=== PATIENT | female | born 1960 | race American Indian/Alaskan Native ===

== ENCOUNTER 2016-12-09 19:07 | Emergency (ER) | payer OTHER, MEDICAID ==
[2016-12-09 19:31] VITALS: BP 123/78
--- NOTE | 2016-12-09 19:57 | EDM.PDOC ---
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 Allergies/ADRs: Allergies clindamycin Allergy (Verified 12/09/16 19:31) Rash cyclobenzaprine HCl [From Flexeril] Allergy (Verified 12/09/16 19:31) Rash Penicillins Allergy (Verified 12/09/16 19:31) Swelling Home Medications: Ambulatory Orders LORazepam [LORazepam] 0.5 mg PO DAILY 12/09/16 [Confirmed 12/09/16] traMADol HCl [Tramadol HCl] 50 mg PO TID 12/09/16 [Confirmed 12/09/16] Past Medical History HEENT History: Reports: Hard of hearing, Impaired vision, Other (see below) Other HEENT History: deaf right ear, DOES NOT WEAR CORRECTIVE LENSES, DOES NEED THEM Cardiovascular History: Reports: Hypertension Other Cardiovascular History: DENIES HTN Respiratory History: Reports: None Gastrointestinal History: Reports: GERD, Helicobacter pylori, Other (see below) Other Gastrointestinal History: ABDOMINAL PAIN PERSISTENT Genitourinary History: Reports: None 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: , 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 (see below) Other OB/BYN History: uterine cancer 1994 Musculoskeletal History: Reports: Arthritis, Back pain, chronic, Osteoarthritis Other Musculoskeletal History: arthritis low back and right knee; RIGHT HAND CARPAL TUNNEL Neurological History: Reports: None Psychiatric History: Reports: None Endocrine/Metabolic History: Reports: None Hematologic History: Reports: None Immunologic History: Reports: None Oncologic (Cancer) History: Reports: Uterine Dermatologic History: Reports: None - Infectious Disease History Infectious Disease History: Reports: Chicken pox, Helicobacter pylori - Past Surgical History Head Surgeries/Procedures: Reports: None HEENT Surgical History: Reports: Tonsillectomy, Other (see below) Other HEENT Surgeries/Procedures: right ear surgery Cardiovascular Surgical History: Reports: None Respiratory Surgical History: Reports: None GI Surgical History: Reports: Cholecystectomy, Colonoscopy, EGD, Other (see below) Other GI Surgeries/Procedures: CLOSED LIVER BIOPSY Female Surgical History: Reports: Hysterectomy Endocrine Surgical History: Reports: None Neurological Surgical History: Reports: None Musculoskeletal Surgical History: Reports: None Oncologic Surgical History: Reports: Other (see below) Other Oncologic Surgeries/Procedures: hysterectomy Dermatological Surgical History: Reports: None Social & Family History - Family History Family Medical History: Noncontributory - Tobacco Use Smoking Status *Q: Current Every Day Smoker Years of Tobacco use: 41 Packs/Tins Daily: 0.5 Used Tobacco, but Quit: No Second Hand Smoke Exposure: Yes - Alcohol Use Days Per Week of Alcohol Use: 0 - Recreational Drug Use Recreational Drug Use: No Drug Use in Last 12 Months: No Review of Systems - Review of Systems Review Of Systems: ROS reveals no pertinent complaints other than HPI. Trauma Exam - Physical Exam Exam: See Below Exam Limited By: No limitations General Appearance: Reports: alert, WD/WN, mild distress, other (CRYING) Head: Reports: atraumatic Ears: Reports: hearing grossly normal Throat/Mouth: Reports: Normal voice, No airway compromise Neck: Reports: non-tender, full range of motion Respiratory Exam: Reports: no respiratory distress Cardiovascular: Reports: regular rate, rhythm GI/Abdominal: Reports: soft, non tender Extremities: Reports: pain with movement, tenderness, other (left foot dorsal- lateral>, tender R/P, no D/D, NV wnl, gait limited to pain) Neurologic: Reports: no motor/sensory deficits, alert, normal mood/affect, oriented x 3 Skin: Reports: Normal color, Warm/dry Course - Vital Signs Last Recorded V/S: Last Vital Signs Temp 36.6 C 12/09/16 19:26 Pulse 72 12/09/16 19:26 Resp 14 12/09/16 19:26 BP 123/78 12/09/16 19:26 Pulse Ox 97 12/09/16 19:26 - Orders/Labs/Meds Meds: Medications Discontinued Medications Generic Name Dose Route Start Last Admin Trade Name Freq PRN Reason Stop Dose Admin Hydrocodone Bitart/Acetaminophen 1 tab 12/09/16 20:34 12/09/16 20:37 [place] 325-10 Mg PO 12/09/16 20:35 1 tab ONETIME ONE Administration - Re-Assessments/Exams Free Text/Narrative Re-Assessment/Exam: 12/09/16 20:39 negative x-ray discussed with Pt. Departure - Departure Time of Disposition: 20:39 Disposition: Home, Self-Care 01 Condition: good Clinical Impression: Sprain of foot, left Qualifiers: Encounter type: initial encounter Qualified Code(s): S93.602A - Unspecified sprain of left foot, initial encounter Instructions: Foot Sprain Forms: ED Department Discharge Additional Instructions: 1) elevate foot as much as possible next 48 hours 2) ice intermittently for swelling 3) follow up at clinic or recheck as needed rx given: vicodon 5/325mg bid prn x 6
[2016-12-09] MEDS ORDERED: Acetaminophen/HYDROcodone 325-10 MG Tab PO ONE (20:34)
== END 2016-12-09 20:45 | disposition home or self-care (01) ==
LOC: DL.ED 19:07
DX: S93.602A Unspecified sprain of left foot, initial encounter (principal); I10 Essential (primary) hypertension; K21.9 Gastro-esophageal reflux disease without esophagitis; M19.90 Unspecified osteoarthritis, unspecified site; F17.210 Nicotine dependence, cigarettes, uncomplicated; Z98.890 Other specified postprocedural states; Z90.49 Acquired absence of other specified parts of digestive tract; Z90.710 Acquired absence of both cervix and uterus; Z88.1 Allergy status to other antibiotic agents; Z88.0 Allergy status to penicillin; Z88.8 Allergy status to other drugs, medicaments and biological substances; W19.XXXA Unspecified fall, initial encounter
CPT/HCPCS: 73600; 73630; 99283; A9270

== ENCOUNTER 2020-06-06 17:45 | Emergency (ER) | payer MEDICAID, OTHER ==
[2020-06-06] MEDS ORDERED: Sodium Chloride 0.9% 10 ML Syringe FLUSH PRN (18:02)
[2020-06-06] MEDS ORDERED: Ondansetron 4 MG/2 ML SDV IVPUSH ONE (18:03)
--- NOTE | 2020-06-06 18:08 | EDM.PDOC ---
<JarrettCamelia Stephani - Last Filed: 06/06/20 18:52> ED HPI GENERAL MEDICAL PROBLEM - General Chief Complaint: Abdominal Pain Stated Complaint: FRONT LEFT SIDE OF STOMACH, PRESSURE Time Seen by Provider: 06/06/20 18:00 Source of Information: Reports: Patient History Limitations: Reports: No Limitations - History of Present Illness INITIAL COMMENTS - FREE TEXT/NARRATIVE: Patient is here today for left lower-mid abdominal pain. 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 It is a cramping pain that is intermittent. Worse with walking and movement, better with rest. She has not had this pain before. She had a normal bowel movement since this started without relief. No blood or mucous in the stool. She does have some n ausea. No vomiting. No urinary symptoms. Left Lower Abdomen Pain Score (Numeric/FACES): 7 - Related Data Allergies Allergy/AdvReac Type Severity Reaction Status Date / Time clindamycin Allergy Rash Verified 06/06/20 18:01 cyclobenzaprine HCl Allergy Rash Verified 06/06/20 18:01 [From Flexeril] Penicillins Allergy Swelling Verified 06/06/20 18:01 Home Meds: Home Meds . 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 Musculoskeletal History: Reports: Arthritis, Back Pain, Chronic, Osteoarthritis Other Musculoskeletal History: arthritis low back and right knee; RIGHT HAND CARPAL TUNNEL Neurological History: Reports: None Psychiatric History: Reports: None Endocrine/Metabolic History: Reports: None Hematologic History: Reports: None Immunologic History: Reports: None Oncologic (Cancer) History: Reports: Uterine Dermatologic History: Reports: None - Infectious Disease History Infectious Disease History: Reports: Chicken Pox, Helicobacter Pylori - Past Surgical History Head Surgeries/Procedures: Reports: None HEENT Surgical History: Reports: Tonsillectomy, Other (See Below) Cardiovascular Surgical History: Reports: None Respiratory Surgical History: Reports: None GI Surgical History: Reports: Cholecystectomy, Colonoscopy, EGD, Other (See Below) Female Surgical History: Reports: Hysterectomy Endocrine Surgical History: Reports: None Neurological Surgical History: Reports: None Oncologic Surgical History: Reports: Other (See Below) Dermatological Surgical History: Reports: None Social & Family History - Family History Family Medical History: Noncontributory - Caffeine Use Caffeine Use: Reports: Coffee, Soda ED ROS GENERAL - Review of Systems Review Of Systems: Comprehensive ROS is negative, except as noted in HPI. ED EXAM, GI/ABD - Physical Exam Exam: See Below Exam Limited By: No Limitations General Appearance: Alert, WD/WN, No Apparent Distress Throat/Mouth: Normal Voice, No Airway Compromise Respiratory/Chest: No Respiratory Distress, Lungs Clear, Normal Breath Sounds, No Accessory Muscle Use, Chest Non-Tender Cardiovascular: Normal Peripheral Pulses, Regular Rate, Rhythm, No Edema, No Murmur GI/Abdominal Exam: Soft, No Distention, Tender (left lower quadrant). No: Guarding, Rebound Back Exam: Normal Inspection, Full Range of Motion Extremities: Normal Inspection, Normal Range of Motion, Non-Tender Neurological: Alert, Oriented, Normal Cognition, Normal Gait Psychiatric: Normal Affect, Normal Mood Skin Exam: Warm, Dry, Intact, Normal Color, No Rash Lymphatic: No Adenopathy Course - Re-Assessments/Exams Free Text/Narrative Re-Assessment/Exam: Patient signed out to Dr. Peterson at 1900 shift change. 06/06/20 18:52 Departure - Departure Disposition: DC/Tfer to [facility] 02 Clinical Impression: Perforated diverticulum - Discharge Information Forms: Interfacility Transfer [facility] Sepsis Event Note (ED) - Evaluation Sepsis Screening Result: No Definite Risk <Yoan Peterson - Last Filed: 06/06/20 20:33> ED HPI GENERAL MEDICAL PROBLEM - History of Present Illness INITIAL COMMENTS - FREE TEXT/NARRATIVE: re-exam; s/p IV toradol = '0'. LLQ guarding without rebound. BS minimal. ED EXAM, GI/ABD - Physical Exam GI/Abdominal Exam: Other (re-exam; guarding without rebound) Course - Vital Signs Last Recorded V/S: Last Vital Signs Temp 36.7 C 06/06/20 18:54 Pulse 60 06/06/20 18:54 Resp 16 06/06/20 18:54 BP 108/75 06/06/20 18:54 Pulse Ox 96 06/06/20 18:54 - Orders/Labs/Meds Orders: Active Orders 24 hr Category Date Time Status Peripheral IV Care [RC] . DIRECTED Care 06/06/20 18:03 Active Abdomen 1V Flat [CR] Stat Exams 06/06/20 18:02 Taken Abdomen Pelvis wo Cont [CT] Urgent Exams 06/06/20 19:03 Taken Ciprofloxacin in D5W [Cipro in D5W 400 MG/200 ML] 400 Med 06/06/20 20:19 Active mg Premix Bag 1 bag IV ONETIME Sodium Chloride 0.9% [Saline Flush] Med 06/06/20 18:02 Active 10 ml FLUSH ASDIRECTED PRN metroNIDAZOLE/Normal Saline [Flagyl 500 MG in NS 100 ML Med 06/06/20 20:19 Active ] 500 mg Premix Bag 100 bag IV ONETIME Peripheral IV Insertion Adult [OM.PC] Stat Oth 06/06/20 18:02 Ordered Medication Orders Metronidazole 500 mg/ Premix 100 mls @ 100 mls/hr IV ONETIME ONE Stop: 06/06/20 21:18 Last Admin: 06/06/20 20:27 Dose: 100 mls/hr Documented by: JONATAN Ciprofloxacin/Dextrose 400 mg/ (Premix) 200 mls @ 200 mls/hr IV ONETIME ONE Stop: 06/06/20 21:18 Sodium Chloride (Saline Flush) 10 ml FLUSH ASDIRECTED PRN PRN Reason: Keep Vein Open Last Admin: 06/06/20 18:10 Dose: 10 ml Documented by: ZEN Labs: Laboratory Tests 06/06/20 06/06/20 06/06/20 Range/Units 18:07 18:07 18:13 WBC 7.1 (5.0-10.0) 10^3/uL RBC 4.46 (4.2-5.4) 10^6/uL Hgb 13.0 (12.0-16.0) g/dL Hct 39.8 (37.0-47.0) % MCV 89.2 (80-100) fL MCH 29.1 (27.0-34.0) pg MCHC 32.7 L (33.0-35.0) g/dL Plt Count 302 (150-450) 10^3/uL Neut % (Auto) 56.1 (42.2-75.2) % Lymph % (Auto) 34.0 (20.5-50.1) % [place] % (Auto) 8.7 H (2-8) % Eos % (Auto) 1.1 (1.0-3.0) % Baso % (Auto) 0.1 (0.0-1.0) % Sodium 140 (136-145) mmol/L Potassium 4.3 (3.5-5.1) mmol/L Chloride 105 (98-107) mmol/L Carbon Dioxide 29 (21-32) mmol/L Anion Gap 10.3 (7-13) mEq/L BUN 13 (7-18) mg/dL Creatinine 0.67 (0.55-1.02) mg/dL Est Cr Clr Drug Dosing 67.38 mL/min Estimated GFR (MDRD) > 60 BUN/Creatinine Ratio 19.4 (No establ ref range) Glucose 115 H (74-99) mg/dL Calcium 8.7 (8.5-10.1) mg/dL Total Bilirubin 0.3 (0.2-1.0) mg/dL AST 19 (15-37) U/L ALT 15 (14-59) U/L Alkaline Phosphatase 127 H (46-116) U/L Total Protein 7.3 (6.4-8.2) g/dL Albumin 3.3 L (3.4-5.0) g/dL Globulin 4.0 Albumin/Globulin Ratio 0.83 Urine Color Yellow (YELLOW) Urine Appearance Cloudy (CLEAR) Urine pH 8.5 (5.0-9.0) Ur Specific [place] 1.020 (1.005-1.030) Urine Protein Trace H (NEGATIVE) Urine Glucose (UA) Negative (NEGATIVE) Urine Ketones Negative (NEGATIVE) Urine Occult Blood Moderate H (NEGATIVE) Urine Nitrite Negative (NEGATIVE) Urine Bilirubin Negative (NEGATIVE) Urine Urobilinogen 2.0 H (0.2-1.0) mg/dL Ur Leukocyte Esterase Negative (NEGATIVE) Urine RBC 10-20 H /HPF Urine WBC 0-5 (0-5/HPF) /HPF Ur Epithelial Cells Rare (NOT SEEN) /HPF Amorphous Sediment Moderate H (NOT SEEN) /HPF Urine Bacteria Few (0-FEW/HPF) /HPF Urine Mucus Few H (NOT SEEN) /LPF Meds: Medications Generic Name Dose Route Start Last Admin Trade Name Freq PRN Reason Stop Dose Admin Metronidazole 500 mg/ Premix 100 mls @ 100 mls/hr 06/06/20 20:19 06/06/20 20:27 IV 06/06/20 21:18 100 mls/hr ONETIME ONE Administration Ciprofloxacin/Dextrose 400 mg/ 200 mls @ 200 mls/hr 06/06/20 20:19 Premix IV 06/06/20 21:18 ONETIME ONE Sodium Chloride 10 ml 06/06/20 18:02 06/06/20 18:10 Saline Flush FLUSH 10 ml ASDIRECTED PRN Administration Keep Vein Open Discontinued Medications Generic Name Dose Route Start Last Admin Trade Name Freq PRN Reason Stop Dose Admin Hydromorphone HCl 1 mg 06/06/20 20:02 06/06/20 20:11 Dilaudid IVPUSH 06/06/20 20:03 1 mg ONETIME ONE Administration Ketorolac Tromethamine 30 mg 06/06/20 19:02 06/06/20 19:18 Toradol IVPUSH 06/06/20 19:03 30 mg ONETIME ONE Administration Ondansetron HCl 4 mg 06/06/20 18:03 06/06/20 18:10 Zofran IVPUSH 06/06/20 18:04 4 mg ONETIME ONE Administration - Re-Assessments/Exams Free Text/Narrative Re-Assessment/Exam: 06/06/20 20:[address] Lopez ER @ [facility] who kindly accepted pt. Departure - Departure Time of Disposition: 20:32 Condition: Fair Sepsis Event Note (ED) - Focused Exam Vital Signs: Vital Signs Temp Pulse Resp BP Pulse Ox 06/06/20 18:54 36.7 C 60 16 108/75 96 06/06/20 17:53 36.6 C 69 18 138/72 - My Orders Last 24 Hours: My Active Orders 06/06/20 19:03 Abdomen Pelvis wo Cont [CT] Urgent 06/06/20 20:19 Ciprofloxacin in D5W [Cipro in D5W 400 MG/200 ML] 400 mg Premix Bag 1 bag IV ONETIME metroNIDAZOLE/Normal Saline [Flagyl 500 MG in NS 100 ML] 500 mg Premix Bag 100 bag IV ONETIME - Assessment/Plan Last 24 Hours: My Active Orders 06/06/20 19:03 Abdomen Pelvis wo Cont [CT] Urgent 06/06/20 20:19 Ciprofloxacin in D5W [Cipro in D5W 400 MG/200 ML] 400 mg Premix Bag 1 bag IV ONETIME metroNIDAZOLE/Normal Saline [Flagyl 500 MG in NS 100 ML] 500 mg Premix Bag 100 bag IV ONETIME
[2020-06-06 18:54] VITALS: BP 108/75; PULSE 60
[2020-06-06 18:57] LABS: ANION GAP 10.3 mEq/L (7-13); CHLORIDE,CL 105 mmol/L (98-107); SODIUM,NA 140 mmol/L (136-145)
[2020-06-06] MEDS ORDERED: Ketorolac 30 MG/ML SDV IVPUSH ONE (19:02)
[2020-06-06] MEDS ORDERED: HYDROmorphone 1 MG/ML Syringe IVPUSH ONE (20:02)
[2020-06-06] MEDS ORDERED: Ciprofloxacin in D5W 400 MG in Premix Bag 1 BAG IV ONE ×2 (20:19)
[2020-06-06] MEDS ORDERED: metroNIDAZOLE/Normal Saline 500 MG in Premix Bag 100 BAG IV ONE (20:19)
--- NOTE | 2020-06-08 12:24 | CR ---
PROCEDURE INFORMATION: Exam: XR Abdomen, 1 View Exam date and time: 06/06/2020 6:19 PM Age: 60 years old Clinical indication: Constipation; Additional info: Abdominal pain TECHNIQUE: Imaging protocol: XR of the abdomen. Views: Frontal supine view of the abdomen. 1 View. COMPARISON: No relevant prior studies available. FINDINGS: Gastrointestinal tract: Normal. Mildly prominent small bowel with multiple air-fluid levels. Post cholecystectomy. Bones/joints: Unremarkable. IMPRESSION: Mildly abnormal bowel gas pattern although obstruction considered unlikely. Follow-up recommended.
--- NOTE | 2020-06-08 12:24 | CT ---
PROCEDURE INFORMATION: Exam: CT Abdomen And Pelvis Without Contrast Exam date and time: 06/06/2020 7:10 PM Age: 60 years old Clinical indication: Other: Left sided pain; Additional info: Haematuria, k-stone, R/O obstruction TECHNIQUE: Imaging protocol: Computed tomography of the abdomen and pelvis without contrast. Radiation optimization: All CT scans at this facility use at least one of these dose optimization techniques: automated exposure control; mA and/or kV adjustment per patient size (includes targeted exams where dose is matched to clinical indication); or iterative reconstruction. COMPARISON: CT Abdomen Pelvis wo Cont 06/01/2018 11:18 AM FINDINGS: Lungs: Unremarkable.No mass or nodule. Liver: Normal. No mass. Gallbladder and bile ducts: Post cholecystectomy. No ductal dilation. Pancreas: Normal. No ductal dilation. Spleen: Normal. No splenomegaly. Adrenals: Normal. No mass. Kidneys and ureters: Normal. No hydronephrosis. Stomach and bowel: Unremarkable. No obstruction. Diverticulosis of the distal descending colon and sigmoid. Suggestion of mild mural thickening and pericolic fat stranding in the mid sigmoid. There are a few small gas bubbles adjacent to the mid sigmoid that appear extraluminal. Appendix: No evidence of appendicitis. Intraperitoneal space: Unremarkable. No free air. No significant fluid collection. Vasculature: Unremarkable. No abdominal aortic aneurysm. Lymph nodes: Unremarkable. No enlarged lymph nodes. Urinary bladder: Unremarkable as visualized. Reproductive: Hysterectomy. Bones/joints: Unremarkable. No acute fracture. Soft tissues: Unremarkable. IMPRESSION: Supple CT findings consider suspicious for acute diverticulitis with possible diverticular perforation. Clinical correlation is requested.
== END 2020-06-06 21:29 ==
LOC: DL.ED 17:45
DX: K57.30 Diverticulosis of large intestine without perforation or abscess without bleeding (principal); I10 Essential (primary) hypertension; Z88.0 Allergy status to penicillin; Z88.1 Allergy status to other antibiotic agents; Z90.49 Acquired absence of other specified parts of digestive tract; Z90.710 Acquired absence of both cervix and uterus
CPT/HCPCS: 36415; 74018; 74176; 80053; 81001; 85025; 96365; 96368; 96375; 99285; J0744; J1170; J1885; J2405; J3490; 99284

== ENCOUNTER 2024-05-23 09:34 | Emergency (ER) | payer MEDICAID ==
[2024-05-23 09:51] VITALS: BP 164/80; PULSE 56
[2024-05-23] MEDS: Sodium Chloride 0.9% 1,000 ML IV ONE (10:01)
[2024-05-23 10:04] LABS: BASOPHILS PERCENT AUTO 0.1 % (0.0-1.0); EOSINOPHILS PERCENT AUTO 0.8 % (1.0-3.0); HEMOGLOBIN 12.1 g/dL (12.0-16.0); LYMPHOCYTES PERCENT AUTO 24.1 % (20.5-50.1); MEAN CORPUSCULAR HEMOGLOBIN 28.9 pg (27.0-34.0); MEAN CORPUSCULAR HGB CONC 32.7 g/dL (33.0-35.0); MEAN CORPUSCULAR VOLUME 88.5 fL (80-100); MONOCYTES PERCENT AUTO 7.9 % (2-8); NEUTROPHILS PERCENT AUTO 67.1 % (42.2-75.2); PLATELET COUNT,PLT 265 10^3/uL (150-450); RED BLOOD CELL COUNT 4.18 10^6/uL (4.2-5.4)
[2024-05-23] MEDS: Morphine 4 MG/ML Syringe IVPUSH ONE (10:08)
[2024-05-23] MEDS: Ondansetron 4 MG/2 ML SDV IVPUSH ONE (10:08)
[2024-05-23 10:24] LABS: A/G RATIO 0.83; ALBUMIN 3.3 g/dL (3.4-5.0); ANION GAP 10.1 mEq/L (7-13); BILIRUBIN TOTAL 0.4 mg/dL (0.2-1.0); CALCIUM 8.7 mg/dL (8.5-10.1); CREATININE 0.7 mg/dL (0.55-1.02); EST CRCL DRUG DOSING (CG) 61.27 mL/min; POTASSIUM,K 3.1 mmol/L (3.5-5.1); PROTEIN TOTAL,TP 7.3 g/dL (6.4-8.2)
[2024-05-23] MEDS: Iopamidol 755 Mg/ML 100 ML Bottle IVPUSH ONE (10:59)
[2024-05-23] MEDS: Potassium Chloride 10 MEQ Tab.ER PO ONE (11:08)
[2024-05-23] MEDS: Acetaminophen/HYDROcodone 325-10 MG Tab PO ONE (12:08)
== END 2024-05-23 12:10 | disposition home or self-care (01) ==
LOC: DL.ED 09:34
DX: R07.89 Other chest pain (principal); E87.6 Hypokalemia; I10 Essential (primary) hypertension; F17.210 Nicotine dependence, cigarettes, uncomplicated; Z90.49 Acquired absence of other specified parts of digestive tract; Z90.710 Acquired absence of both cervix and uterus; Z88.1 Allergy status to other antibiotic agents; Z88.6 Allergy status to analgesic agent; Z88.0 Allergy status to penicillin
CPT/HCPCS: 36415; 71045; 71275; 80053; 83690; 83735; 84484; 85025; 85379; 93005; 96361; 96374; 99285; A9270; J2405; J7030; Q9967; 93010; 99284; J2270